=== PATIENT | male | born 1990 | race Caucasian/White ===

== ENCOUNTER 2018-02-24 16:23 | Emergency (ER) | payer OTHER ==
[~2018-02-24] VITALS: Ht 177.8 cm; Wt 63.5 kg
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
[2018-02-24 16:54] LABS: BASOPHILS % (AUTO) 0.3 % (0.0-2.0); EOSINOPHILS % (AUTO) 2.9 % (0.0-6.0); HEMATOCRIT 33 % (39-51); HEMOGLOBIN 11.3 g/dL (13.5-17.5); LYMPHOCYTES # (AUTO) 1.3 /CMM (0.8-4.8); LYMPHOCYTES % (AUTO) 15.5 % (20.0-44.0); MEAN CORPUSCULAR HGB CONC 34 g/dl (31.0-36.0); MEAN CORPUSCULAR VOLUME 83 fL (80-96); MONOCYTES # (AUTO) 0.5 /CMM (0.1-1.30); MONOCYTES % (AUTO) 5.3 % (2.0-12.0); NEUTROPHILS # (AUTO) 6.5 /CMM (1.8-8.9); PLATELET COUNT (AUTO) 510 /CMM (150-450); RDW COEFFICIENT OF VARIATION 13.7 (11.5-15.0); RED BLOOD CELL COUNT(AUTO) 4.01 MIL/uL (4.5-6.0); WHITE BLOOD COUNT (AUTO) 8.6 K/uL (4.3-11.0)
[2018-02-24] MEDS: IV NS 0.9% 1,000 ML BAG IV ONE (16:55)
[2018-02-24] MEDS ORDERED: ONDANSETRON HCL/PF 4 MG/2 ML VIAL ONE ×2 (16:55→20:06)
[2018-02-24] MEDS: ONDANSETRON HCL/PF 4 MG/2 ML VIAL IVP ONE (16:56)
[2018-02-24] MEDS ORDERED: HYDROMORPHONE INJ 2 MG/ML DISP.SYRIN ONE (16:56)
[2018-02-24] MEDS: HYDROMORPHONE INJ 2 MG/ML DISP.SYRIN IV ONE (17:01)
--- NOTE | 2018-02-24 17:02 | NUR ---
PATIENT TRANSPORTED FOR CT.
[2018-02-24 17:04] LABS: CREATININE 0.6 mg/dL (0.6-1.3); POTASSIUM 3.9 mmol/L (3.5-5.1)
[2018-02-24 17:09] LABS: INR 1.09 (0.85-1.15)
[2018-02-24] MEDS ORDERED: IV NS 0.9% 250 ML IV ONE (17:10)
[2018-02-24] MEDS ORDERED: IOHEXOL-300 100 ML VIAL IV ONE (17:10)
[2018-02-24 17:11] LABS: ALBUMIN 2.7 g/dL (3.4-5.0); BILIRUBIN,DIRECT 0.2 mg/dL (0.0-0.2); BILIRUBIN,TOTAL 0.6 mg/dL (0.2-1.0); TOTAL PROTEIN, SERUM 7.8 g/dL (6.4-8.2)
--- NOTE | 2018-02-24 17:30 | NUR ---
Patient is resting comfortably in bed with eyes closed. Easily aroused. VSS
[2018-02-24 18:02] LABS: APPEARANCE,URINE Clear (CLEAR); BILIRUBIN,URINE Negative (NEGATIVE); BLOOD, URINE Negative Ery/uL (NEGATIVE); COLOR,URINE Yellow (YELLOW); KETONES,URINE 15 (NEGATIVE); LEUKOCYTE ESTERASE ,URINE Small (NEGATIVE); NITRITE, URINE Positive (NEGATIVE); PH,URINE 5.5 (5.0-8.0); PROTEIN,URINE Negative (NEGATIVE); UGLUCOSE Negative (NEGATIVE); UROBILINOGEN,URINE 0.2 EU/dL (0.2)
[2018-02-24 18:18] LABS: BACTERIA,URINE Moderate /HPF (None Seen); MUCUS,URINE Few /LPF (None Seen); RBC,URINE 0-2 /HPF (0-2); SQUAMOUS EPITHELIAL CELL,UR Rare /HPF (None Seen); URINE AMORPHOUS URATE Few /HPF (None Seen)
--- NOTE | 2018-02-24 19:00 | NUR ---
REPORT GIVEN TO ED, SUSTAINABLE LANDSCAPE ARCHITECT NURSE FOR KATARZYNA.
[2018-02-24] MEDS ORDERED: NA PHOS,M-B/NA PHOS,DI-BA 1 EA ENEMA RC ONE (19:21)
[2018-02-24] MEDS ORDERED: LUBI24CA5 PO (19:24)
[2018-02-24] MEDS ORDERED: CALC500T3 PO (19:24)
[2018-02-24] MEDS ORDERED: ZOLP5TAB2 PO (19:24)
[2018-02-24] MEDS ORDERED: ASCO500T9 PO (19:24)
[2018-02-24] MEDS ORDERED: SIME80TA15 PO (19:24)
[2018-02-24] MEDS ORDERED: ONDA8TAB6 PO (19:24)
[2018-02-24] MEDS ORDERED: DRON5CAP15 PO (19:24)
[2018-02-24] MEDS ORDERED: IPRA3AMP23 IH (19:24)
[2018-02-24] MEDS ORDERED: SENN-167 PO (19:24)
[2018-02-24] MEDS ORDERED: ACET-868 PO (19:24)
[2018-02-24] MEDS ORDERED: DOCU250C14 PO (19:24)
[2018-02-24] MEDS ORDERED: FAMO20TA8 PO (19:24)
[2018-02-24] MEDS ORDERED: MORP100S3 PO (19:24)
[2018-02-24] MEDS ORDERED: GABA-534 PO (19:24)
[2018-02-24] MEDS ORDERED: ALPR0.25 PO (19:24)
[2018-02-24] MEDS ORDERED: LACT1CAP57 PO (19:24)
[2018-02-24] MEDS ORDERED: OXYC-128 PO (19:24)
--- NOTE | 2018-02-24 19:27 | NUR ---
GALLBLADDER EDWIN DONE.
--- NOTE | 2018-02-24 19:28 | NUR ---
MAUDE M[employer]I [employer] CLAIMS ADJUSTER AT BEDSIDE FOR MANUAL DISIMPACTION. ENEMA GIVEN ORDERED.
[2018-02-24] MEDS: NA PHOS,M-B/NA PHOS,DI-BA 1 EA ENEMA RC ONE (19:29)
[2018-02-24] MEDS ORDERED: IV D5/0.45 NACL 1,000 ML IV SCH (20:00)
[2018-02-24] MEDS ORDERED: FENTANYL PF 100MCG/2ML AMPUL IV PRN (20:00)
[2018-02-24] MEDS ORDERED: Z GUARD REMEDY 2 OZ OINT TP PRN (20:00)
[2018-02-24] MEDS ORDERED: ACETAMINOPHEN 325 MG TABLET PO PRN (20:00)
[2018-02-24] MEDS ORDERED: MAG HYDROX/AL HYDROX/SIMETH 30 ML UDC PO PRN (20:00)
[2018-02-24] MEDS ORDERED: ONDANSETRON HCL/PF 4 MG/2 ML VIAL IVP PRN (20:00)
[2018-02-24] MEDS ORDERED: MAGNESIUM HYDROXIDE 30 ML UDC PO PRN (20:00)
[2018-02-24] MEDS ORDERED: LEVOFLOXACIN 500 MG /D5W 100ML 100 ML IV ONE (20:02)
--- NOTE | 2018-02-24 20:06 | NUR ---
MS 203
--- NOTE | 2018-02-24 20:06 | NUR ---
PT C/O NAUSEA. ER DIGITAL MEDIA PRODUCER MADE AWARE WITH ORDERS RECEIVED. RN AT BEDSIDE TO MEDICATE PT.
[2018-02-24] MEDS: ONDANSETRON HCL/PF 4 MG/2 ML VIAL IV ONE (20:09)
[2018-02-24] MEDS: LEVOFLOXACIN 500 MG /D5W 100ML 500 MG/100 ML PIGGYBACK IV ONE (20:09)
--- NOTE | 2018-02-24 20:33 | NUR ---
REPORT CALLED TO M/S CLAIRE FALCON. WILL TRANSPORT PT TO ROOM 203.
--- NOTE | 2018-02-24 21:36 | NUR ---
PATIENT WILL BE TRANSFERRED TO [facility] TO BED 406-3 NUMBER FOR REPORT - - SPEAKING WITH CHARGE NURSE
--- NOTE | 2018-02-24 21:38 | NUR ---
COOPERATIVE MANAGER IS FIORELLA MCCOY -
--- NOTE | 2018-02-24 21:38 | NUR ---
[facility]I RIG [id number]
--- NOTE | 2018-02-24 21:40 | NUR ---
ER EDWARD SANTORO AT [facility] TALKING TO PT REGARDING TRANSFER.
--- NOTE | 2018-02-24 22:15 | NUR ---
REPORT CALLED TO [facility] CLAIRE ZARAGOZA. AWAITING TRANSPORT.
[2018-02-24 22:17] VITALS: BP 127/75
--- NOTE | 2018-02-24 22:24 | NUR ---
accepting MD Dr Franklin Boland
--- NOTE | 2018-02-24 22:40 | NUR ---
transport at bedside report givne to emt.
[2018-02-25] MEDS ORDERED: DOCUSATE SODIUM 100 MG CAPSULE PO SCH (09:00)
[2018-02-25] MEDS ORDERED: PANTOPRAZOLE 40 MG VIAL IV SCH (09:00)
== END 2018-02-24 22:40 | disposition short-term general hospital (02) ==
LOC: ER 16:24
DX: K59.00 Constipation, unspecified (principal); G82.20 Paraplegia, unspecified; R11.2 Nausea with vomiting, unspecified; N39.0 Urinary tract infection, site not specified; L89.153 Pressure ulcer of sacral region, stage 3; D64.9 Anemia, unspecified; E44.0 Moderate protein-calorie malnutrition; E86.0 Dehydration; F11.20 Opioid dependence, uncomplicated; K82.8 Other specified diseases of gallbladder; R53.2 Functional quadriplegia; Z90.49 Acquired absence of other specified parts of digestive tract; Z93.0 Tracheostomy status
CPT/HCPCS: 36415; 76705-TC; 80048-TC; 80076-TC; 81000-TC; 83690-TC; 85025-TC; 85730-TC; 87040-TC; 87081-TC; 87086-TC; A4606; J1170; J1956; J2405; J7030; J7050; Q9967; Z7610